=== PATIENT | female | born 1985 | race Caucasian/White ===

== ENCOUNTER 2023-05-02 16:31 | Inpatient (IN) | payer OTHER ==
[2023-05-02] MEDS ORDERED: SODIUM CHLORIDE 0.9% 1,000 ML IV STA ×2 (16:45→18:27)
[2023-05-02] MEDS ORDERED: ASPIRIN 81 MG PO STA (16:45)
[2023-05-02] MEDS ORDERED: ONDANSETRON 4 MG/2 ML VIAL IVP STA (16:46)
[2023-05-02] MEDS ORDERED: THIAMINE 100 MG/ML 2 ML VIAL IM STA (16:46)
[2023-05-02] MEDS ORDERED: LORazepam 2 MG/ML INJ IV PRN ×2 (16:46)
--- NOTE | 2023-05-02 17:08 | ED ---
General Adult HPI - General Chief complaint: Alcohol Stated complaint: ETOH Time Seen by Provider: 05/02/23 16:40 Source: patient, RN notes reviewed, old records reviewed Mode of arrival: EMS Limitations: no limitations - History of Present Illness Initial comments: Patient is a 37-year-old female presents emergency department for multiple complaints. Patient is having alcohol withdrawal symptoms as well as chest pains. States this is been ongoing throughout the day today. Last alcoholic beverage was over 12 hours ago. States she does not plan on drinking again. Does have a history of delirium tremens and alcohol withdrawals. Laboratory presented to [facility] where they some Librium to pharmacy that is closed and did not perform any additional testing. Presents again today for further evaluation. Is also complaining of suicidal ideations are nonspecific. Denies any plans or attempts. Denies any homicidal ideations, attempts, plans. Denies any hallucinations. Does have a history of delirium tremens. Endorses some mild nausea as well as one episode of nonbilious nonbloody emesis at home. Does have history of PE per patient. No shortness of breath. Primary complaint is chest pain and alcohol withdrawal symptoms at this time. Discussed the chest pain as a somewhat pressure-like sensation located substernally. Does not radiate. No other acute complaints at this time. No cardiac history for the patient. Presents for further evaluation. - Related Data Home Medications Medication Instructions Recorded Confirmed No Known Home Medications 05/02/23 05/02/23 Allergies Allergy/AdvReac Type Severity Reaction Status Date / Time cat dander Allergy Rash/Hives/Tongue Verified 05/02/23 19:05 Swelling Review of Systems ROS Statement: Those systems with pertinent positive or pertinent negative responses have been documented in the HPI. Review of Systems: CONST: Denies fever EYES: Denies blurry vision ENT: Denies nasal congestion C/V: Endorses chest pain RESP: Denies shortness of breath GI: Denies abdominal pain : Denies dysuria SKIN: Denies rash. MSK: Denies joint pain. NEURO: Denies headache ROS Other: All systems not noted in ROS Statement are negative. Past Medical History Past Medical History: Pulmonary Embolus (PE) History of Any Multi-Drug Resistant Organisms: None Reported Past Surgical History: Section Past Psychological History: Anxiety, Depression, PTSD Smoking Status: Never smoker Past Alcohol Use History: Abuse, Daily Past Drug Use History: Marijuana General Exam - General Exam Comments Initial Comments: General: Appears in no acute distress. Patient does have mild tongue fasciculations as well as extremity tremors. Patient does appear somewhat anxious. Is tachycardic as well. Appears to be a mild alcohol withdrawals at this time. HEAD: Normal with no signs of head trauma. EYES: PERRLA, EOMI, conjunctiva normal, no discharge. Pupils are 3 mm and equal bilaterally. ENT: Hearing grossly intact, normal oropharynx. RESPIRATORY: Clear breath sounds bilaterally. No wheezes, rales, or rhonchi. C/V: Tachycardic. S1 and S2 auscultated, peripheral pulses 2+ and intact throughout ABD: Abd is soft, nontender, nondistended EXT: Normal range of motion, no obvious deformity SKIN: Scars located over body. NEURO: Alert and oriented x 4. Tongue Fasciculations Present. Extremity Tremors Present. Limitations: no limitations Course Vital Signs 05/02/23 05/02/23 16:36 18:54 Temperature 98.1 F 98.8 F Pulse Rate 110 H 87 Respiratory 18 18 Rate Blood Pressure 161/103 128/88 O2 Sat by Pulse 98 100 Oximetry Medical Decision Making - Medical Decision Making Was pt. sent in by a medical professional or institution (, PA, ATHLETE MANAGER, urgent care, hospital, or half-way...) When possible be specific @ -No Did you speak to anyone other than the patient for history (EMS, parent, family, police, friend...)? What history was obtained from this source @ -No Did you review nursing and triage notes (agree or disagree)? Why? @ -I reviewed and agree with nursing and triage notes Were old charts reviewed (outside hosp., previous admission, EMS record, old EKG, old radiological studies, urgent care reports/EKG's, half-way records)? Report findings @ -Old charts reviewed. Differential Diagnosis (chest pain, altered mental status, abdominal pain women, abdominal pain men, vaginal bleeding, weakness, fever, dyspnea, syncope, headache, dizziness, GI bleed, back pain, seizure, CVA, palpatations, mental health, musculoskeletal)? @ -Differential Mental Health Depression, anxiety, bipolar, psychosis, schizophrenia, borderline personality, situational depression, adjustment disorder, behavioral disorder, brain tumor, malingering, substance abuse, encephalopathy, medication reaction, dementia, hyp othyroidism, degenerative neurologic disorder, lupus.... This is not meant to be all-inclusive list Differential Chest Pain: Stable Angina, Unstable Angina, STEMI, NSTEMI Aortic Dissection, Pneumothorax, Musculoskeletal, Esophageal Spasm GERD, Cholecystitis, Pancreatitis, Zoster, this is not meant to be an all-inclusive list. EKG interpreted by me (3pts min.). @ -As above X-rays interpreted by me (1pt min.). @ -Chest x-ray reveals no obvious acute cardiopulmonary process. CT interpreted by me (1pt min.). @ -None done U/S interpreted by me (1pt. min.). @ -None done What testing was considered but not performed or refused? (CT, X-rays, U/S, labs)? Why? @ -None What meds were considered but not given or refused? Why? @ -None Did you discuss the management of the patient with other professionals (professionals i.e. , PA, ATHLETE MANAGER, lab, RT, psych nurse, social services technician, cement crusher operator, teacher, technology officer, mental health case manager)? Give summary @ -yes, discussed with Dr. Pisano who accepted the patient. Was smoking cessation discussed for >3mins.? @ -No Was critical care preformed (if so, how long)? @ -No Were there social determinants of health that impacted care today? How? (Homelessness, low income, unemployed, alcoholism, drug addiction, transportation, low edu. Level, literacy, decrease access to med. care, prison, rehab)? @ -No Was there de-escalation of care discussed even if they declined (Discuss DNR or withdrawal of care, Hospice)? DNR status @ -No What co-morbidities impacted this encounter? (DM, HTN, Smoking, COPD, CAD, Cancer, CVA, ARF, Chemo, Hep., AIDS, mental health diagnosis, sleep apnea, morbid obesity)? @ -None Was patient admitted / discharged? Hospital course, mention meds given and route, prescriptions, significant lab abnormalities, going to OR and other pertinent info. @ -Based on the patient's presentation and physical exam, presents complaining of alcohol withdrawals, chest pain. We will obtain cardio pulmonary workup, as well as screening EKG, alcohol levels. Patient is continued suicidal ideations are nonspecific. She was placed in green scrubs and sitter ordered. Suicide precautions ordered. She'll be sent directly treated with IV Ativan, as well as IV Zofran, IV fluids. She was in agreement this plan. She is resting comfortably at this time. She is a mild alcohol withdrawals at this time. Discussed with the patient should likely be admitted and have psychiatry see her on an inpatient basis.[facility] protocol orderd. She is given 325mg of aspirin. EKG showed no signs of acute ischemia.Patient's labs are remarkable for a hypokalemia at 3.1 which was replenished, hypomagnesemia 1.4 which was replenished. Troponin is undetectable. BNP within acceptable limits. Remainder the workup unremarkable. This includes a d-dimer within normal limits. Reevaluation, patient is feeling improved. I would like to admit her for her alcohol withdrawals, electrolyte derangements, as well as chest pain. We will trend the troponin. Cardiology will be consulted. Due to her suicidal ideation psychiatry will also be consulted. She was in agreement with this plan. I spoke with the accepting physician, [facility] Dr. Pisano who accepted the patient. Undiagnosed new problem with uncertain prognosis? @ -No Drug Therapy requiring intensive monitoring for toxicity (Heparin, Nitro, Insulin, Cardizem)? @ -No Were any procedures done? @ -No Diagnosis/symptom? @ -Alcohol withdrawal, hypomagnesemia, hypokalemia, suicidal ideation, chest pain Acute, or Chronic, or Acute on Chronic? @ -Acute Uncomplicated (without systemic symptoms) or Complicated (systemic symptoms)? @ -Complicated Side effects of treatment? @ -none Exacerbation, Progression, or Severe Exacerbation] @ -no Poses a threat to life or bodily function? @ -Yes - Lab Data Result diagrams: 05/02/23 17:14 05/02/23 17:14 Lab Results 05/02/23 05/02/23 05/02/23 Range/Units 17:14 17:14 17:14 WBC 3.5 L (3.8-10.6) k/uL RBC 3.78 L (3.80-5.40) m/uL Hgb 12.6 (11.4-16.0) gm/dL Hct 35.6 (34.0-46.0) % MCV 94.2 (80.0-100.0) fL MCH 33.3 (25.0-35.0) pg MCHC 35.3 (31.0-37.0) g/dL RDW 12.8 (11.5-15.5) % Plt Count 112 L (150-450) k/uL MPV 7.9 Neutrophils % 65 % Lymphocytes % 25 % Monocytes % 7 % Eosinophils % 0 % Basophils % 0 % Neutrophils # 2.3 (1.3-7.7) k/uL Lymphocytes # 0.9 L (1.0-4.8) k/uL Monocytes # 0.3 (0-1.0) k/uL Eosinophils # 0.0 (0-0.7) k/uL Basophils # 0.0 (0-0.2) k/uL PT 12.4 (10.0-12.5) sec INR 1.2 H (<1.2) APTT 23.2 (22.0-30.0) sec D-Dimer 0.39 (<0.60) mg/L FEU Sodium 139 (137-145) mmol/L Potassium 3.1 L (3.5-5.1) mmol/L Chloride 108 H (98-107) mmol/L Carbon Dioxide 18 L (22-30) mmol/L Anion Gap 13 mmol/L BUN 9 (7-17) mg/dL Creatinine 0.61 (0.52-1.04) mg/dL Est GFR (CKD-EPI)AfAm >90 (>60 ml/min/1.73 sqM) Est GFR (CKD-EPI)NonAf >90 (>60 ml/min/1.73 sqM) Glucose 118 H (74-99) mg/dL Calcium 8.2 L (8.4-10.2) mg/dL Magnesium 1.4 L (1.6-2.3) mg/dL Total Bilirubin 1.4 H (0.2-1.3) mg/dL AST 72 H (14-36) U/L ALT 36 H (4-34) U/L Alkaline Phosphatase 104 (38-126) U/L Troponin I (0.000-0.034) ng/mL NT-Pro-B Natriuret Pep 156 pg/mL Total Protein 7.3 (6.3-8.2) g/dL Albumin 4.0 (3.5-5.0) g/dL Lipase 80 (23-300) U/L Urine Color Urine Appearance (Clear) Urine pH (5.0-8.0) Ur Specific [place] (1.001-1.035) Urine Protein (Negative) Urine Glucose (UA) (Negative) Urine Ketones (Negative) Urine Blood (Negative) Urine Nitrite (Negative) Urine Bilirubin (Negative) Urine Urobilinogen (<2.0) mg/dL Ur Leukocyte Esterase (Negative) Urine RBC (0-5) /hpf Urine WBC (0-5) /hpf Ur Squamous Epith Cells (0-4) /hpf Urine Bacteria (None) /hpf Urine Mucus (None) /hpf Serum Alcohol <10 mg/dL 05/02/23 05/02/23 Range/Units 17:14 17:14 WBC (3.8-10.6) k/uL RBC (3.80-5.40) m/uL Hgb (11.4-16.0) gm/dL Hct (34.0-46.0) % MCV (80.0-100.0) fL MCH (25.0-35.0) pg MCHC (31.0-37.0) g/dL RDW (11.5-15.5) % Plt Count (150-450) k/uL MPV Neutrophils % % Lymphocytes % % Monocytes % % Eosinophils % % Basophils % % Neutrophils # (1.3-7.7) k/uL Lymphocytes # (1.0-4.8) k/uL Monocytes # (0-1.0) k/uL Eosinophils # (0-0.7) k/uL Basophils # (0-0.2) k/uL PT (10.0-12.5) sec INR (<1.2) APTT (22.0-30.0) sec D-Dimer (<0.60) mg/L FEU Sodium (137-145) mmol/L Potassium (3.5-5.1) mmol/L Chloride (98-107) mmol/L Carbon Dioxide (22-30) mmol/L Anion Gap mmol/L BUN (7-17) mg/dL Creatinine (0.52-1.04) mg/dL Est GFR (CKD-EPI)AfAm (>60 ml/min/1.73 sqM) Est GFR (CKD-EPI)NonAf (>60 ml/min/1.73 sqM) Glucose (74-99) mg/dL Calcium (8.4-10.2) mg/dL Magnesium (1.6-2.3) mg/dL Total Bilirubin (0.2-1.3) mg/dL AST (14-36) U/L ALT (4-34) U/L Alkaline Phosphatase (38-126) U/L Troponin I <0.012 (0.000-0.034) ng/mL NT-Pro-B Natriuret Pep pg/mL Total Protein (6.3-8.2) g/dL Albumin (3.5-5.0) g/dL Lipase (23-300) U/L Urine Color Yellow Urine Appearance Cloudy H (Clear) Urine pH 6.0 (5.0-8.0) Ur Specific [place] 1.018 (1.001-1.035) Urine Protein Trace H (Negative) Urine Glucose (UA) Negative (Negative) Urine Ketones Negative (Negative) Urine Blood Negative (Negative) Urine Nitrite Negative (Negative) Urine Bilirubin Negative (Negative) Urine Urobilinogen <2.0 (<2.0) mg/dL Ur Leukocyte Esterase Small H (Negative) Urine RBC 3 (0-5) /hpf Urine WBC 15 H (0-5) /hpf Ur Squamous Epith Cells 12 H (0-4) /hpf Urine Bacteria Rare H (None) /hpf Urine Mucus Moderate H (None) /hpf Serum Alcohol mg/dL - EKG Data -: EKG Interpreted by Me EKG Comments: 12-lead Electrocardiogram Interpretation Note EKG was reviewed and interpreted by myself. 12-lead ECG performed at 1645 is interpreted by me as revealing normal sinus rhythm at a rate of 98 beats per mi nute. [place] is normal. [place] interval is 127 ms, QRS duration is 86 ms, QTc is 385 ms.. There were no ST or T wave abnormalities to suggest myocardial ischemia or injury. R wave progression across the precordium was satisfactory. By my interpretation this EKG is non-diagnostic for acute ischemia. Disposition Clinical Impression: Alcohol withdrawal, Hypomagnesemia, Hypokalemia, Suicidal ideations, Chest pain Disposition: ADMITTED IP TO THIS HOSP Condition: Stable Time of Disposition: 18:15
[2023-05-02 17:24] VITALS: RESP 18
--- NOTE | 2023-05-02 17:46 | XR ---
EXAMINATION TYPE: XR chest 2V DATE OF EXAM: 05/02/2023 COMPARISON: None HISTORY: 37-year-old female with chest pain TECHNIQUE: PA and lateral views FINDINGS: The cardiomediastinal silhouette, aorta, and pulmonary vasculature are within normal limits. Lungs an d pleural spaces are clear. IMPRESSION: No acute cardiopulmonary process.
[2023-05-02 17:47] LABS: Basophils % (A) 0 %; Eosinophils % (A) 0 %; HCT 35.6 % (34.0-46.0); HGB 12.6 gm/dL (11.4-16.0); Lymphocytes # (A) 0.9 k/uL (1.0-4.8); Lymphocytes % (A) 25 %; MCH 33.3 pg (25.0-35.0); MCHC 35.3 g/dL (31.0-37.0); MCV 94.2 fL (80.0-100.0); Mean Platelet Volume 7.9; Monocytes # (A) 0.3 k/uL (0-1.0); Monocytes % (A) 7 %; Neutrophils # (A) 2.3 k/uL (1.3-7.7); Neutrophils % (A) 65 %; Platelet Count 112 k/uL (150-450); RBC 3.78 m/uL (3.80-5.40); RDW 12.8 % (11.5-15.5); WBC 3.5 k/uL (3.8-10.6)
[2023-05-02 18:00] LABS: INR 1.2 (<1.2); Partial Thromboplastin Time 23.2 sec (22.0-30.0); Prothrombin Time 12.4 sec (10.0-12.5)
[2023-05-02 18:01] LABS: ALT 36 U/L (4-34); AST 72 U/L (14-36); African American GFR (CKD) >90 (>60 ml/min/1.73 sqM); Alcohol <10 mg/dL; Alkaline Phosphatase 104 U/L (38-126); Anion Gap 13 mmol/L; Blood Urea Nitrogen 9 mg/dL (7-17); Calcium 8.2 mg/dL (8.4-10.2); Carbon Dioxide 18 mmol/L (22-30); Chloride 108 mmol/L (98-107); Glucose 118 mg/dL (74-99); Lipase 80 U/L (23-300); Magnesium 1.4 mg/dL (1.6-2.3); Non-African American GFR(CKD) >90 (>60 ml/min/1.73 sqM); Potassium 3.1 mmol/L (3.5-5.1); Sodium 139 mmol/L (137-145); Total Bilirubin 1.4 mg/dL (0.2-1.3); Total Protein 7.3 g/dL (6.3-8.2)
[2023-05-02 18:08] LABS: NT-Pro-B-Type Natriuretic Pept 156 pg/mL
[2023-05-02] MEDS ORDERED: POTASSIUM CHLORIDE ER 20 MEQ TAB.ER PO STA (18:26)
[2023-05-02] MEDS ORDERED: MAGNESIUM SULFATE-D5W PMX 1 GM in DEXTROSE/WATER 1 100ML.BAG IVPB ONE (18:26)
[2023-05-02] MEDS ORDERED: MAG HYDROX/AL HYDROX/SIMETH 30 ML, HYOSCYAMINE ELIXIR 10 ML, LIDOCAINE 2% GLYDO JELLY 1... PO STA ×3 (18:27)
[2023-05-02] MEDS ORDERED: NALOXONE 0.4 MG/ML 1 ML VIAL IV PRN (18:29)
[2023-05-02] MEDS: LORazepam 2 MG/ML INJ IV PRN (18:42)
[2023-05-02 20:10] LABS: Appearance,Urine Cloudy (Clear); Bacteria,Urine Rare /hpf; Bilirubin,Urine Negative (Negative); Blood,Urine Negative (Negative); Color,Urine Yellow; Glucose,Urine (UA) Negative (Negative); Ketones,Urine Negative (Negative); Leukocyte Esterase,Urine Small (Negative); Mucus,Urine Moderate /hpf; Nitrite,Urine Negative (Negative); Protein,Urine Trace (Negative); RBC,Urine 3 /hpf (0-5); Specific Gravity,Urine 1.018 (1.001-1.035); Squamous Epithelial Cell,Urine 12 /hpf (0-4); Urobilinogen,Urine <2.0 mg/dL (<2.0); WBC,Urine 15 /hpf (0-5)
[2023-05-03] MEDS ORDERED: IBUPROFEN 600 MG TAB PO STA ×2 (00:14→00:15)
[2023-05-03] MEDS: HEPARIN SODIUM,PORCINE 5,000 UNIT/ML 1 ML VIAL SQ SCH ×4 (00:21→23:28)
[2023-05-03] MEDS: LORazepam 2 MG/ML INJ IV PRN ×4 (00:29→20:36)
[2023-05-03] MEDS ORDERED: TEMAZEPAM 15 MG CAP PO ONE (03:30)
--- NOTE | 2023-05-03 04:20 | P.HPIM ---
History of Present Illness H&P Date: 05/02/23 Chief Complaint: Alcohol withdrawal 37-year-old female with alcohol abuse Patient coming in seeking help with alcohol detox she's been sober for over a month however she had a relapse started drinking again coming in today asking for help with detox her last drink was about 12 hours prior to presentation she reports history of DVTs in the past. Currently patient feeling fine reporting no chest pain trouble breathing she feels little anxious denies any hallucinations Patient does report depressed mood and suicidal ideation however she doesn't have a plan she is asking for help and speak with our psychiatrist Patient also reports that she is homeless currently living with a friend. And would like to discuss with sr. social media & mobile manager see there is any options for [facility] rehab Patient denies tobacco smoking or illicit drugs she does not take any medications at home Patient denies any fevers chills coughing chest pain trouble breathing nausea vomiting abdominal pain changes in bowel or urinary habits denies any GI bleeding review of systems Pertinent positives as noted in HPI. All other systems were reviewed and are negative on exam Constitutional: No acute distress, conversant, pleasant Eyes: Anicteric sclerae, moist conjunctiva, Pupils equal round reactive to light ENMT: NC/AT Oropharynx clear, no erythema, or exudates Neck: Supple, no masses, or JVD No carotid bruits No thyromegaly Lungs: Clear to auscultation Clear to percussion Normal respiratory effort, no accessory muscle use Cardiovascular: Heart regular in rate and rhythm, No murmurs, gallops, or rubs No peripheral edema Abdominal: Soft Nontender, no guarding, rebound or rigidity Abdomen moving with respiration Normoactive bowel sounds No hepatomegaly, No splenomegaly No palpable mass No abdominal wall hernia noted Skin: Multiple raised lesions over bilateral legs with history of psoriasis, lesions look scaly around macular erythematous Extremities: No digital cyanosis No clubbing Pedal pulses intact and symmetrical Radial pulses intact and symmetrical No calf tenderness Psychiatric: Alert and oriented to person, place and time Neuro Muscles Strength 5/5 in all 4 extremities Sensation to light touch grossly present throughout Cranial nerves II-XII grossly intact Lymphatics: no palpable cervical or supraclavicular lymph nodes Past Medical History Past Medical History: Pulmonary Embolus (PE) History of Any Multi-Drug Resistant Organisms: None Reported Past Surgical History: Section Past Psychological History: Anxiety, Depression, PTSD Smoking Status: Never smoker Past Alcohol Use History: Abuse, Daily Past Drug Use History: Marijuana Medications and Allergies Home Medications Medication Instructions Recorded Confirmed Type No Known Home Medications 05/02/23 05/02/23 History Allergies Allergy/AdvReac Type Severity Reaction Status Date / Time cat dander Allergy Rash/Hives/Tongue Verified 05/02/23 19:05 Swelling Physical Exam Vitals: Vital Signs Temp Pulse Resp BP Pulse Ox 05/02/23 20:46 86 18 151/95 95 05/02/23 18:54 98.8 F 87 18 128/88 100 05/02/23 16:36 98.1 F 110 H 18 161/103 98 Intake and Output 05/02/23 05/02/23 05/03/23 14:59 22:59 06:59 Other: Weight 90.718 kg Results CBC & Chem 7: 05/02/23 17:14 05/02/23 17:14 Labs: Abnormal Lab Results - Last 24 Hours (Table) 05/02/23 05/02/23 05/02/23 Range/Units 17:14 17:14 17:14 WBC 3.5 L (3.8-10.6) k/uL RBC 3.78 L (3.80-5.40) m/uL Plt Count 112 L (150-450) k/uL Lymphocytes # 0.9 L (1.0-4.8) k/uL INR 1.2 H (<1.2) Potassium 3.1 L (3.5-5.1) mmol/L Chloride 108 H (98-107) mmol/L Carbon Dioxide 18 L (22-30) mmol/L Glucose 118 H (74-99) mg/dL Calcium 8.2 L (8.4-10.2) mg/dL Magnesium 1.4 L (1.6-2.3) mg/dL Total Bilirubin 1.4 H (0.2-1.3) mg/dL AST 72 H (14-36) U/L ALT 36 H (4-34) U/L Urine Appearance (Clear) Urine Protein (Negative) Ur Leukocyte Esterase (Negative) Urine WBC (0-5) /hpf Ur Squamous Epith Cells (0-4) /hpf Urine Bacteria (None) /hpf Urine Mucus (None) /hpf 05/02/23 Range/Units 17:14 WBC (3.8-10.6) k/uL RBC (3.80-5.40) m/uL Plt Count (150-450) k/uL Lymphocytes # (1.0-4.8) k/uL INR (<1.2) Potassium (3.5-5.1) mmol/L Chloride (98-107) mmol/L Carbon Dioxide (22-30) mmol/L Glucose (74-99) mg/dL Calcium (8.4-10.2) mg/dL Magnesium (1.6-2.3) mg/dL Total Bilirubin (0.2-1.3) mg/dL AST (14-36) U/L ALT (4-34) U/L Urine Appearance Cloudy H (Clear) Urine Protein Trace H (Negative) Ur Leukocyte Esterase Small H (Negative) Urine WBC 15 H (0-5) /hpf Ur Squamous Epith Cells 12 H (0-4) /hpf Urine Bacteria Rare H (None) /hpf Urine Mucus Moderate H (None) /hpf Assessment and Plan Assessment: 37-year-old female with alcohol dependence coming in requesting help with alcohol withdrawal as she strength to detox she is also reporting depressed mood and suicidal ideation and discuss case with the ED doctor accepted the admission for alcohol withdrawal with suicidal ideation for psych evaluation with anticipated length of stay more than 2 midnights Alcohol dependence with alcohol withdrawal Alcohol withdrawal precautions Benzos per CIWA Thiamine daily Fall precautions IV fluid hydration normal saline 75 mL per hour Electrolytes Abnormalities Hypokalemia replace and follow-up levels Potassium 3.1 Hypomagnesemia replace and follow up level Magnesium 1.4 Transaminitis most likely secondary to alcohol abuse AST 72 ALT 36 Continue to follow up Acute respiratory viral panel negative for influenza Covid and flu Hemoglobin 12.6 white count 3.5 unremarkable D-dimer negative Renal function unremarkable sodium 139 BUN 9 creatinine 0.6 Depressed mood Suicidal ideation Suicide precautions Psych evaluation Full code DVT prophylaxis heparin subcu 3 times a day
[2023-05-03 06:35] VITALS: TEMP 97.6
[2023-05-03] MEDS: THIAMINE 100 MG TAB PO SCH (09:05)
[2023-05-03] MEDS: PANTOPRAZOLE 40 MG/10 ML VIAL IV SCH (09:06)
[2023-05-03 10:38] LABS: Basophils % (A) 1 %; Eosinophils % (A) 1 %; HCT 36.1 % (34.0-46.0); HGB 12.3 gm/dL (11.4-16.0); Lymphocytes # (A) 0.9 k/uL (1.0-4.8); Lymphocytes % (A) 42 %; MCH 32.9 pg (25.0-35.0); MCHC 34.1 g/dL (31.0-37.0); MCV 96.4 fL (80.0-100.0); Mean Platelet Volume 7.6; Monocytes # (A) 0.1 k/uL (0-1.0); Monocytes % (A) 6 %; Neutrophils % (A) 47 %; RBC 3.75 m/uL (3.80-5.40); RDW 12.9 % (11.5-15.5)
[2023-05-03 10:51] LABS: African American GFR (CKD) >90 (>60 ml/min/1.73 sqM); Anion Gap 11 mmol/L; Blood Urea Nitrogen 4 mg/dL (7-17); Carbon Dioxide 20 mmol/L (22-30); Chloride 108 mmol/L (98-107); Glucose 91 mg/dL (74-99); Magnesium 1.8 mg/dL (1.6-2.3); Non-African American GFR(CKD) >90 (>60 ml/min/1.73 sqM); Potassium 3.5 mmol/L (3.5-5.1); Sodium 139 mmol/L (137-145)
[2023-05-03 11:13] LABS: Platelet Count 94 k/uL (150-450); RBC Morphology Normal
--- NOTE | 2023-05-03 11:50 | P.PN ---
Subjective Progress Note Date: 05/03/23 37 year old F with PMH of EtOH abuse presents to the ED for alcohol withdrawal and suicidal thoughts. In the ED, she underwent extensive evaluation. BP 161/103 HR 110, T 98.1F, RR 18, 98% on RA. CBC WBC 3.5, RBC 3.78, Plt 112. CMP Cl 108, bicarb 20, BUN 4, Ca 8. Troponins < 0.012 x 3. UA small LE. COVID, Flu, RSV negative. EtOH serum < 10. 05/03 Patient was seen and examined. She reports feeling hopeless. CBC WBC 2, RBC 3.75, Plt 94. CMP Cl 108, bicarb 20, BUN 4, Ca 8. Vital signs reviewed General: no distress, appears at stated age Derm: warm, dry Eyes: EOMI, no lid lag, anicteric sclera ENT: Nose and ears atraumatic Cardiovascular: Good distal perfusion in all 4 extremities Lungs: Breathing comfortably, no accessory muscle use Ext: no gross muscle atrophy, no contractures Neuro: no focal neuro deficits Psych: Alert, oriented, appropriate affect Based on my assessment of this patient, this patient meets a moderate complexity level of care. Patient has an acute complaint of alcohol withdrawal and suicidal ideations which poses a threat to life or bodily function. Alcohol dependence with alcohol withdrawal: CIWA protocol with ativan PRN per scale. Leukopenia and thrombocytopenia: Likely related to EtOH abuse. Transaminitis: Obstructive. Likely related to EtOH abuse. No abdominal complaints. Obtain Liver and GB US. Suicidal ideation: Sitter. Psyc consulted. Resolved: HypoK CODE STATUS: FULL CODE DVT Prophylaxis: Heparin SQ GI Prophylaxis: Protonix IV Designated medical POA if patient is not able to make medical decisions for themselves: I have reviewed the following accounting policy consultant notes: I have reviewed the results of the following tests: CBC, CMP. I have ordered the following tests: CBC, CMP, Liver GB US I have discussed the care of this patient with the following independent historian: I have independently interpreted the following test below: I have discussed the management of this patient with the following physician: Objective - Vital Signs Vital signs: Vital Signs Temp 97.6 F 05/03/23 06:32 Pulse 102 H 05/03/23 09:15 Resp 18 05/03/23 09:15 BP 144/107 05/03/23 09:15 Pulse Ox 98 05/03/23 09:15 FiO2 Intake & Output 05/02/23 05/03/23 05/03/23 18:59 06:59 18:59 Weight 90.718 kg - Labs CBC & Chem 7: 05/03/23 10:12 05/03/23 10:12 Labs: Abnormal Lab Results - Last 24 Hours (Table) 05/02/23 05/02/23 05/02/23 Range/Units 17:14 17:14 17:14 WBC 3.5 L (3.8-10.6) k/uL RBC 3.78 L (3.80-5.40) m/uL Plt Count 112 L (150-450) k/uL Neutrophils # (1.3-7.7) k/uL Lymphocytes # 0.9 L (1.0-4.8) k/uL INR 1.2 H (<1.2) Potassium 3.1 L (3.5-5.1) mmol/L Chloride 108 H (98-107) mmol/L Carbon Dioxide 18 L (22-30) mmol/L BUN (7-17) mg/dL Glucose 118 H (74-99) mg/dL Calcium 8.2 L (8.4-10.2) mg/dL Magnesium 1.4 L (1.6-2.3) mg/dL Total Bilirubin 1.4 H (0.2-1.3) mg/dL AST 72 H (14-36) U/L ALT 36 H (4-34) U/L Urine Appearance (Clear) Urine Protein (Negative) Ur Leukocyte Esterase (Negative) Urine WBC (0-5) /hpf Ur Squamous Epith Cells (0-4) /hpf Urine Bacteria (None) /hpf Urine Mucus (None) /hpf 05/02/23 05/03/23 05/03/23 Range/Units 17:14 10:12 10:12 WBC 2.0 L (3.8-10.6) k/uL RBC 3.75 L (3.80-5.40) m/uL Plt Count 94 L (150-450) k/uL Neutrophils # 1.0 L (1.3-7.7) k/uL Lymphocytes # 0.9 L (1.0-4.8) k/uL INR (<1.2) Potassium (3.5-5.1) mmol/L Chloride 108 H (98-107) mmol/L Carbon Dioxide 20 L (22-30) mmol/L BUN 4 L (7-17) mg/dL Glucose (74-99) mg/dL Calcium 8.0 L (8.4-10.2) mg/dL Magnesium (1.6-2.3) mg/dL Total Bilirubin (0.2-1.3) mg/dL AST (14-36) U/L ALT (4-34) U/L Urine Appearance Cloudy H (Clear) Urine Protein Trace H (Negative) Ur Leukocyte Esterase Small H (Negative) Urine WBC 15 H (0-5) /hpf Ur Squamous Epith Cells 12 H (0-4) /hpf Urine Bacteria Rare H (None) /hpf Urine Mucus Moderate H (None) /hpf
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
--- NOTE | 2023-05-03 12:45 | P.CRDCN ---
History of Present Illness History of present illness: This is Dr. Mccormack dictating an H/P on this patient The patient was interviewed and examined IMPRESSION / ASSESSMENT: Alcohol abuse Atypical chest discomfort normal EKG and normal cardiac enzymes No arrhythmias detected so far Mildly elevated blood pressure in the setting of alcohol use Suppressed white count likely related to alcohol use PLAN: Watch blood pressure If remains elevated and heart rates are also elevated I will treat her with beta blockers 2-D echo and Doppler study to assess cardiac structure and function HPI 37-year-old female who presented with recurrent chest discomfort. She has been drinking heavily recently She also complained of palpitations and got scared No loss of consciousness no shortness of breath Low white count consistent with bone marrow suppression likely alcohol related Normal d-dimer Low potassium of 3.1 Normal renal function Normal cardiac enzymes Normal NT proBNP Twelve-lead EKG shows sinus rhythm normal RI narrow QRS normal ST segments ROS: No fever chills or rigors, no cough, phlegm or expectoration, no nausea, vomiting or diarrhea, no hematuria, dysuria, no musculoskeletal complaints, no strokes or seizures, no skin lesions. EXAMINATION: Pulse rate 93 beats a minute, blood pressure mildly elevated at 143/95 mmHg Normal heart sounds Normal breath sounds No JVD REVIEW OF LABS, ECG & MEDICAL DATA Labs are reviewed normal cardiac enzymes normal NT proBNP Low white count Past Medical History Past Medical History: Pulmonary Embolus (PE) History of Any Multi-Drug Resistant Organisms: None Reported Past Surgical History: Section Past Psychological History: Anxiety, Depression, PTSD Smoking Status: Never smoker Past Alcohol Use History: Abuse, Daily Past Drug Use History: Marijuana Medications and Allergies Home Medications Medication Instructions Recorded Confirmed Type No Known Home Medications 05/02/23 05/02/23 History Allergies Allergy/AdvReac Type Severity Reaction Status Date / Time cat dander Allergy Rash/Hives/Tongue Verified 05/02/23 19:05 Swelling Physical Exam Vitals: Vital Signs Temp Pulse Resp BP Pulse Ox 05/03/23 09:15 102 H 18 144/107 98 05/03/23 06:32 97.6 F 93 18 143/95 96 05/02/23 20:46 86 18 151/95 95 05/02/23 18:54 98.8 F 87 18 128/88 100 05/02/23 16:36 98.1 F 110 H 18 161/103 98 Intake and Output 12/05/03/23 05/03/23 22:59 06:59 14:59 Other: Weight 90.718 kg Results 05/03/23 10:12 05/03/23 10:12 Cardiac Enzymes 05/02/23 05/02/23 05/02/23 Range/Units 17:14 17:14 22:07 AST 72 H (14-36) U/L Troponin I <0.012 <0.012 (0.000-0.034) ng/mL 05/03/23 Range/Units 01:23 AST (14-36) U/L Troponin I <0.012 (0.000-0.034) ng/mL Coagulation 05/02/23 Range/Units 17:14 PT 12.4 (10.0-12.5) sec APTT 23.2 (22.0-30.0) sec CBC 05/02/23 05/03/23 Range/Units 17:14 10:12 WBC 3.5 L 2.0 L (3.8-10.6) k/uL RBC 3.78 L 3.75 L (3.80-5.40) m/uL Hgb 12.6 12.3 (11.4-16.0) gm/dL Hct 35.6 36.1 (34.0-46.0) % Plt Count 112 L 94 L (150-450) k/uL Comprehensive Metabolic Panel 05/02/23 05/03/23 Range/Units 17:14 10:12 Sodium 139 139 (137-145) mmol/L Potassium 3.1 L 3.5 (3.5-5.1) mmol/L Chloride 108 H 108 H (98-107) mmol/L Carbon Dioxide 18 L 20 L (22-30) mmol/L BUN 9 4 L (7-17) mg/dL Creatinine 0.61 0.60 (0.52-1.04) mg/dL Glucose 118 H 91 (74-99) mg/dL Calcium 8.2 L 8.0 L (8.4-10.2) mg/dL AST 72 H (14-36) U/L ALT 36 H (4-34) U/L Alkaline Phosphatase 104 (38-126) U/L Total Protein 7.3 (6.3-8.2) g/dL Albumin 4.0 (3.5-5.0) g/dL Current Medications Generic Name Dose Route Start Last Admin Trade Name Freq PRN Reason Stop Dose Admin Heparin Sodium (Porcine) 5,000 unit 05/03/23 00:00 05/03/23 09:07 Heparin Sodium,Porcine 5,000 Unit/Ml 1 Ml Vial SQ 5,000 unit Q8HR CYDNEY Administration Lorazepam 1 mg 05/02/23 16:46 05/03/23 03:56 Lorazepam 2 Mg/Ml Inj IV 1 mg Q1HR PRN Administration CIWA 10 to 15 Lorazepam 1 mg 05/02/23 16:46 Lorazepam 2 Mg/Ml Inj IV Q2HR PRN CIWA 8 or 9 Lorazepam 2 mg 05/02/23 16:46 05/03/23 12:32 Lorazepam 2 Mg/Ml Inj IV 05/04/23 16:46 2 mg Q10M PRN Administration CIWA 16 or higher Naloxone HCl 0.2 mg 05/02/23 18:29 Naloxone 0.4 Mg/Ml 1 Ml Vial IV Q2M PRN Opioid Reversal Pantoprazole Sodium 40 mg 05/03/23 09:00 05/03/23 09:06 Pantoprazole 40 Mg/10 Ml Vial IV 40 mg DAILY CYDNEY Administration Thiamine HCl 100 mg 05/03/23 09:00 05/03/23 09:05 Thiamine 100 Mg Tab PO 100 mg DAILY CYDNEY Administration Intake and Output 05/02/23 05/03/23 05/03/23 22:59 06:59 14:59 Other: Weight 90.718 kg 05/03/23 10:12 05/03/23 10:12
[2023-05-03] MEDS ORDERED: TEMAZEPAM 30 MG CAP PO PRN (20:30)
[2023-05-03] MEDS ORDERED: TEMAZEPAM 7.5 MG CAP PO PRN (22:47)
[2023-05-04] MEDS: LORazepam 2 MG/ML INJ IV PRN ×3 (03:52→04:40)
[2023-05-04] MEDS ORDERED: TEMAZEPAM 15 MG CAP PO PRN (06:39)
--- NOTE | 2023-05-04 07:43 | US ---
EXAMINATION TYPE: US liver DATE OF EXAM: 05/04/2023 COMPARISON: NONE CLINICAL INDICATION: Female, 37 years old with history of add gall bladder; ETOH abuse TECHNIQUE: Multiple sonographic images of the right upper quadrant are obtained. FINDINGS: EXAM MEASUREMENTS: Liver Length: 19.2 cm Gallbladder Wall: 0.2 cm CBD: 0.3 cm Right Kidney: 10.9 x 4.5 x 4.6 cm PARKING CASHIER NOTES: Pancreas: wnl Liver: Enlarged, heterogeneous with increased echotexture. No suspicious masses. Gallbladder: wnl Evidence for sonographic Garcia's sign: No CBD: wnl Right Kidney: wnl IMPRESSION: 1. No evidence for acute process. 2. Hepatic steatosis.
[2023-05-04 08:28] LABS: HCT 36.1 % (34.0-46.0); HGB 12.7 gm/dL (11.4-16.0); MCH 33.4 pg (25.0-35.0); MCHC 35.2 g/dL (31.0-37.0); MCV 94.8 fL (80.0-100.0); Mean Platelet Volume 7.5; Platelet Count 100 k/uL (150-450); RBC 3.81 m/uL (3.80-5.40); RDW 13.2 % (11.5-15.5); WBC 3.5 k/uL (3.8-10.6)
[2023-05-04] MEDS: HEPARIN SODIUM,PORCINE 5,000 UNIT/ML 1 ML VIAL SQ SCH ×2 (09:41→16:25)
[2023-05-04] MEDS: PANTOPRAZOLE 40 MG/10 ML VIAL IV SCH (09:41)
[2023-05-04] MEDS: THIAMINE 100 MG TAB PO SCH (09:42)
[2023-05-04 10:49] LABS: ALT 44 U/L (4-34); AST 119 U/L (14-36); African American GFR (CKD) >90 (>60 ml/min/1.73 sqM); Albumin 3.8 g/dL (3.5-5.0); Albumin/Globulin Ratio 1.2; Alkaline Phosphatase 97 U/L (38-126); Anion Gap 11 mmol/L; Blood Urea Nitrogen 6 mg/dL (7-17); Calcium 8.6 mg/dL (8.4-10.2); Carbon Dioxide 21 mmol/L (22-30); Chloride 106 mmol/L (98-107); Globulin 3.1 g/dL; Glucose 95 mg/dL (74-99); Non-African American GFR(CKD) >90 (>60 ml/min/1.73 sqM); Potassium 3.3 mmol/L (3.5-5.1); Sodium 138 mmol/L (137-145); Total Protein 6.9 g/dL (6.3-8.2)
[2023-05-04] MEDS ORDERED: HYDROcodone/APAP 5-325MG 1 EACH TAB PO PRN (12:53)
[2023-05-04] MEDS ORDERED: POTASSIUM CHLORIDE ER 20 MEQ TAB.ER PO STA (12:53)
--- NOTE | 2023-05-04 12:56 | P.PN ---
Subjective Progress Note Date: 05/04/23 37 year old F with PMH of EtOH abuse presents to the ED for alcohol withdrawal and suicidal thoughts. In the ED, she underwent extensive evaluation. BP 161/103 HR 110, T 98.1F, RR 18, 98% on RA. CBC WBC 3.5, RBC 3.78, Plt 112. CMP Cl 108, bicarb 20, BUN 4, Ca 8. Troponins < 0.012 x 3. UA small LE. COVID, Flu, RSV negative. EtOH serum < 10. 05/03 Patient was seen and examined. She reports feeling hopeless. CBC WBC 2, RBC 3.75, Plt 94. CMP Cl 108, bicarb 20, BUN 4, Ca 8. 05/04 Patient was seen and examined. She reports myalgias. Cardiology recommends Echocardiogram. CBC WBC 3.5, Plt 100. CMP K 3.3, bicarb 21, BUN 6, AST 119, ALT 44. Vital signs reviewed General: no distress, appears at stated age Derm: warm, dry Eyes: EOMI, no lid lag, anicteric sclera ENT: Nose and ears atraumatic Cardiovascular: Good distal perfusion in all 4 extremities Lungs: Breathing comfortably, no accessory muscle use Ext: no gross muscle atrophy, no contractures Neuro: no focal neuro deficits Psych: Alert, oriented, appropriate affect Based on my assessment of this patient, this patient meets a moderate complexity level of care. Patient has an acute complaint of alcohol withdrawal and suicidal ideations wh ich poses a threat to life or bodily function. Alcohol dependence with alcohol withdrawal: CIWA protocol with ativan PRN per scale. Leukopenia and thrombocytopenia: Likely related to EtOH abuse. Transaminitis: Obstructive. Likely related to EtOH abuse. No abdominal complaints. Obtain Liver and GB US. Suicidal ideation: Sitter. Psyc consulted. Resolved: HypoK Medically stable for discharge to mental health unit. CODE STATUS: FULL CODE DVT Prophylaxis: Heparin SQ GI Prophylaxis: Protonix IV Designated medical POA if patient is not able to make medical decisions for themselves: I have reviewed the following executive talent acquisition consultant notes: I have reviewed the results of the following tests: CBC, CMP. I have ordered the following tests: Pending: Liver GB US Echocardiogram. I have discussed the care of this patient with the following independent historian: I have independently interpreted the following test below: I have discussed the management of this patient with the following physician: Objective - Vital Signs Vital signs: Vital Signs Temp 97.6 F 05/03/23 06:32 Pulse 89 05/04/23 04:30 Resp 18 05/04/23 04:30 BP 134/108 05/04/23 04:30 Pulse Ox 98 05/04/23 04:30 FiO2 - Labs CBC & Chem 7: 05/04/23 08:06 05/04/23 08:06 Labs: Abnormal Lab Results - Last 24 Hours (Table) 05/04/23 05/04/23 Range/Units 08:06 08:06 WBC 3.5 L (3.8-10.6) k/uL Plt Count 100 L (150-450) k/uL Potassium 3.3 L (3.5-5.1) mmol/L Carbon Dioxide 21 L (22-30) mmol/L BUN 6 L (7-17) mg/dL AST 119 H (14-36) U/L ALT 44 H (4-34) U/L
[2023-05-04] MEDS ORDERED: METOPROLOL TARTRATE 25 MG TAB PO SCH (13:45)
[2023-05-04 15:01] VITALS: BP 144/104
--- NOTE | 2023-05-04 16:21 | P.PN ---
Subjective HPI 37-year-old female who presented with recurrent chest discomfort. She has been drinking heavily recently She also complained of palpitations and got scared No loss of consciousness no shortness of breath Low white count consistent with bone marrow suppression likely alcohol related Normal d-dimer Low potassium of 3.1 Normal renal function Normal cardiac enzymes Normal NT proBNP Twelve-lead EKG shows sinus rhythm normal IL narrow QRS normal ST segments 05/04 Patient seen and examined. BP mainly 140-150/90-100's. No chest pain. No pa lpitations. Echo pending. EXAMINATION: Vitals reviewed Obese Normal heart sounds Normal breath sounds No JVD 05/04 IMPRESSION / ASSESSMENT: Alcohol abuse Atypical chest discomfort normal EKG and normal cardiac enzymes History of DVT, Dimer normal Hypertension Suppressed white count likely related to alcohol use PLAN: Blood pressure remains elevated and we will start Metoprolol which she believes she was on before and tolerated well. Await 2D echo. Alcohol cessation. Dimer normal with history of PE in the past. If echo unrevealing, no further inpatient workup from a cardiology perspective. Objective - Vital Signs Vital signs: Vital Signs Temp 97.6 F 05/03/23 06:32 Pulse 91 05/04/23 14:42 Resp 18 05/04/23 14:42 BP 144/104 05/04/23 14:42 Pulse Ox 98 05/04/23 14:42 FiO2 - Labs CBC & Chem 7: 05/04/23 08:06 05/04/23 08:06 Labs: Abnormal Lab Results - Last 24 Hours (Table) 05/04/23 05/04/23 Range/Units 08:06 08:06 WBC 3.5 L (3.8-10.6) k/uL Plt Count 100 L (150-450) k/uL Potassium 3.3 L (3.5-5.1) mmol/L Carbon Dioxide 21 L (22-30) mmol/L BUN 6 L (7-17) mg/dL AST 119 H (14-36) U/L ALT 44 H (4-34) U/L
[2023-05-04 16:56] VITALS: PULSE 89
--- NOTE | 2023-05-04 18:42 | P.DS ---
Providers Date of admission: 05/02/23 18:30 Expected date of discharge: 05/04/23 Attending physician: Lorena Pisano MD Consults: 05/02/23 18:29 Consult Physician Routine Consulting Provider: [facility] Consult Reason/Comments: chest pain Do you want consulting provider notified?: Yes Consult Physician Routine Consulting Provider: Richard Arce Consult Reason/Comments: suicidal ideations, ETOH abuse Do you want consulting provider notified?: Already Contacted Primary care physician: Stated None Hospital Course: 37 year old F with PMH of EtOH abuse presents to the ED for alcohol withdrawal and suicidal thoughts. In the ED, she underwent extensive evaluation. BP 161/103 HR 110, T 98.1F, RR 18, 98% on RA. CBC WBC 3.5, RBC 3.78, Plt 112. CMP Cl 108, bicarb 20, BUN 4, Ca 8. Troponins < 0.012 x 3. UA small LE. COVID, Flu, RSV negative. EtOH serum < 10. 05/03 Patient was seen and examined. She reports feeling hopeless. CBC WBC 2, RBC 3.75, Plt 94. CMP Cl 108, bicarb 20, BUN 4, Ca 8. 05/04 Patient was seen and examined. She reports myalgias. Cardiology recommends Echocardiogram. CBC WBC 3.5, Plt 100. CMP K 3.3, bicarb 21, BUN 6, AST 119, ALT 44. Liver US shows hepatic steatosis. Echo pending. Medically stable. Plans for transfer to [facility] today. Pertinent studies include Liver US. General: no distress, appears at stated age Derm: warm, dry Eyes: EOMI, no lid lag, anicteric sclera ENT: Nose and ears atraumatic Cardiovascular: Good distal perfusion in all 4 extremities Lungs: Breathing comfortably, no accessory muscle use Ext: no gross muscle atrophy, no contractures Neuro: no focal neuro deficits Psych: Alert, oriented, appropriate affect Discharge Diagnosis: Alcohol dependence with alcohol withdrawal: CIWA protocol with ativan PRN per scale. Leukopenia and thrombocytopenia: Likely related to EtOH abuse. Transaminitis: Obstructive. Likely related to EtOH abuse. No abdominal complaints. Liver and GB US as above. Suicidal ideation: Sitter. Psyc consulted. Resolved: HypoK This complex discharge took 35 minutes to complete. Patient Condition at Discharge: Stable Plan - Discharge Summary New Discharge Prescriptions: No Action No Known Home Medications Discharge Medication List No Known Home Medications 05/02/23 [History] Follow up Appointment(s)/Referral(s): None,Stated [Primary Care Provider] - 1-2 days Discharge Disposition: TRANSFER TO PSYCH HOSP/UNIT
--- NOTE | 2023-05-05 07:57 | CA ---
Transthoracic Echo Report Name: Ena Santana Age: 37 Gender: F : 1985 Exam Date: 05/04/2023 14:50 Exam Location: [place] Echo Ht (in): 68 Wt (lb): 200 Ordering Physician: Jennifer Seay MD Attending/Referring Phys: Disaster Recovery Analyst Monica Rogers RDCS Procedure CPT: Indications: CP Cardiac Hx: Technical Quality: Good Contrast 1: Total Dose (mL): Contrast 2: Total Dose (mL): MEASUREMENTS (Male / Female) Normal Values 2D ECHO LV Diastolic Diameter PLAX 4.1 cm 4.2 - 5.9 / 3.9 - 5.3 cm LV Systolic Diameter PLAX 2.8 cm IVS Diastolic Thickness 1.0 cm 0.6 - 1.0 / 0.6 - 0.9 cm LVPW Diastolic Thickness 1.1 cm 0.6 - 1.0 / 0.6 - 0.9 cm LV Relative Wall Thickness 0.5 RV Internal Dim ED PLAX 2.9 cm LA Systolic Diameter LX 3.5 cm 3.0 - 4.0 / 2.7 - 3.8 cm LV Diastolic Volume MOD 4C 101.5 cm??? LV Systolic Volume MOD 4C 48.3 cm??? LV Ejection Fraction MOD 4C 52.4 % LV Cardiac Index MOD 4C 2217.4 cm???/min???m??? LV Diastolic Length 4C 8.2 cm LV Systolic Length 4C 6.8 cm LV Diastolic Volume MOD 2C 61.8 cm??? LV Systolic Volume MOD 2C 23.5 cm??? LV Ejection Fraction MOD 2C 61.9 % LV Cardiac Index MOD 2C 1593.1 cm???/min???m??? LV Diastolic Length 2C 7.7 cm LV Systolic Length 2C 6.7 cm LA Volume 46.2 cm??? 18 - 58 / 22 - 52 cm??? LA Volume Index 21.9 cm???/m??? 16 - 28 cm???/m??? M-MODE Aortic Root Diameter MM 2.9 cm MV E Point Septal Separation 0.3 cm AV Cusp Separation MM 2.2 cm DOPPLER AV Peak Velocity 111.3 cm/s AV Peak Gradient 5.0 mmHg MV Area PHT 3.4 cm??? Mitral E Point Velocity 57.2 cm/s Mitral A Point Velocity 62.6 cm/s Mitral E to A Ratio 0.9 MV Deceleration Time 222.3 ms FINDINGS Left Ventricle Left ventricular ejection fraction is estimated at 60-65 %. Left ventricular cavity size normal. Left ventricular wall thickness normal. Right Ventricle Normal right ventricular size. Unable to estimate the right ventricular systolic pressure. Right Atrium Normal right atrial size. Left Atrium Normal left atrial size. Mitral Valve Structurally normal mitral valve. No mitral stenosis, regurgitation or prolapse. Aortic Valve Trileaflet aortic valve. No aortic valve stenosis or regurgitation. Tricuspid Valve Structurally normal tricuspid valve. No tricuspid stenosis, regurgitation or prolapse. Pulmonic Valve Structurally normal pulmonic valve. Trace pulmonic regurgitation. Pericardium No pericardial effusion. Aorta Normal size aortic root and proximal ascending aorta. CONCLUSIONS Left ventricular ejection fraction 60-65% No mitral regurgitation No tricuspid regurgitation No pericardial effusion Previewed by: Dr. Mohsen Ward DO (Electronically Signed) Final Date: 05 May 2023 07:56
== END 2023-05-04 18:11 | DRG 775 ==
LOC: EC 16:31 → 3SCARD 18:30 → 5NMEDONC 05-03 12:07
PROVIDERS: ADMIT Internal Medicine; ATTEND Internal Medicine
DX: F10.239 Alcohol dependence with withdrawal, unspecified (principal); Z59.01 Sheltered homelessness; D69.59 Other secondary thrombocytopenia; D72.819 Decreased white blood cell count, unspecified; E66.9 Obesity, unspecified; Z68.30 Body mass index [BMI] 30.0-30.9, adult; E83.42 Hypomagnesemia; E87.6 Hypokalemia; F41.9 Anxiety disorder, unspecified; F43.10 Post-traumatic stress disorder, unspecified; F32.A Depression, unspecified; I10 Essential (primary) hypertension; K76.0 Fatty (change of) liver, not elsewhere classified; R45.851 Suicidal ideations; Z86.711 Personal history of pulmonary embolism; Z86.718 Personal history of other venous thrombosis and embolism; Z11.52 Encounter for screening for COVID-19; R74.01 Elevation of levels of liver transaminase levels
CPT/HCPCS: 36415; 71046; 76705; 80048; 80053; 80320; 81001; 82075; 83690; 83735; 83880; 84484; 85025; 85027; 85379; 85610; 85730; 87636; 93005; 93306; 96361; 96365; 96372; 96375; 96376; 99285

== ENCOUNTER 2023-05-04 16:48 | Inpatient (IN) | payer MEDICAID ==
[2023-05-04] MEDS: LORazepam 1 MG TAB PO PRN (00:15)
[2023-05-04] MEDS ORDERED: MAG HYDROX/AL HYDROX/SIMETH 30 ML CUP PO PRN (17:53)
[2023-05-04] MEDS ORDERED: HALOPERIDOL LACTATE 5 MG/ML 1 ML VIAL IM PRN (17:53)
[2023-05-04] MEDS ORDERED: LORazepam 2 MG/ML INJ IM PRN (17:53)
[2023-05-04] MEDS: LORazepam 1 MG TAB PO SCH (20:12)
[2023-05-04] MEDS: GABAPENTIN 300 MG CAP PO SCH (21:29)
[2023-05-04] MEDS: haloperidoL 5 MG TAB PO PRN (21:30)
[2023-05-05] MEDS: LORazepam 1 MG TAB PO PRN ×2 (00:15→13:36)
[2023-05-05] MEDS: GABAPENTIN 300 MG CAP PO SCH ×3 (08:10→21:45)
[2023-05-05] MEDS: LORazepam 1 MG TAB PO SCH ×2 (08:10→19:48)
[2023-05-05] MEDS: ESCITALOPRAM 10 MG TAB PO SCH (08:11)
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
[2023-05-05 15:02] LABS: LDL Cholesterol,Calculated 111.5 mg/dL (0.0-131.0)
[2023-05-05] MEDS: IBUPROFEN 600 MG TAB PO PRN (17:41)
[2023-05-05] MEDS: haloperidoL 5 MG TAB PO PRN (19:48)
[2023-05-06] MEDS: LORazepam 1 MG TAB PO PRN ×2 (02:19→12:13)
[2023-05-06] MEDS: ESCITALOPRAM 10 MG TAB PO SCH (08:15)
[2023-05-06] MEDS: GABAPENTIN 300 MG CAP PO SCH ×4 (08:16→20:45)
[2023-05-06] MEDS: LORazepam 1 MG TAB PO SCH ×2 (08:16→20:45)
[2023-05-06] MEDS: IBUPROFEN 600 MG TAB PO PRN (12:13)
--- NOTE | 2023-05-06 12:29 | P.PN ---
Subjective Progress Note Date: 05/06/23 Principal diagnosis: Adjustment disorder with mixed emotional features Major depressive disorder recurrent chronic with acute exacerbation Rule out pervasive persistent depressive disorder/dysthymia Alcohol use disorder unspecified Cannabis use disorder unspecified Relationship problems : 05/06/2023 Progress note: Subjective data: The patient was seen chart was reviewed and case discussed with the nursing staff The patient was sitting comfortably by herself in the patient lounge and appears to be in no acute distress She was cooperative during the interview She says that she is feeling better although she says that she has been somewhat anxious but the medications do seem to help She also admits that she tried to sleep but her sleep cycle is somewhat erratic She denies any suicidal or homicidal ideations She said that she feels overall positive about being here Patient also has multiple red blotches on her upper extremities which she claims are psoriatic patches and that it 10 to get more prominent whenever she has relapses and but tended to regress as she improves after her detox She said that she is maintaining a positive attitude overall Mental status examination: Reveals a young female who is somewhat overweight and currently appears in no acute physical distress Casually dressed and groomed as multiple red patches on her upper extremities Patient was friendly and cooperative She makes good eye contact Patient is alert and oriented to time place and person Speech was clear coherent and relevant Thought processes are goal-directed sequential and logical Patient admits feeling very depressed but denies any suicidal ideations or plans She admits feeling helpless and hopeless Thought processes are goal-directed sequential and logical Patient is alert and oriented to time place and person cognitively she appears to be intact Diagnostic impression: Adjustment disorder with mixed emotional features Major depressive disorder recurrent chronic with acute exacerbation Rule out pervasive persistent depressive disorder/dysthymia Alcohol use disorder unspecified Cannabis use disorder unspecified Relationship problems Plan: The patient is recommended for psychiatric hospitalization for further evaluation and treatment Patient will also participate in on the luz activities individual milieu group OT RT PT and pharmacotherapy Approximately the stay would be 7-12 days Patient initially will be started on lorazepam in tapering doses and will be monitored with the ciwa score for any withdrawal symptoms We will further taper down the lorazepam to 1 mg twice a day We'll increase the gabapentin to 300 mg 4 times a day We'll also add trazodone 100 mg at bedtime for insomnia For antidepressant treatment was started on Lexapro 10 mg daily to start within titrated to response Patient was recently treated for electrolyte imbalances at the time of admission where she was low on potassium and magnesium Patient has elevated transaminases secondary to alcohol use We'll continue follow-up Service is to be involved regarding discharge planning since patient has this time is currently homeless and although she is reluctant about the snf house or sober living that might be a a better solution to address both her substance use problems and housing issues [facility] Objective - Vital Signs Vital signs: Vital Signs Temp 97.9 F 05/06/23 06:41 Pulse 120 H 05/06/23 08:14 Resp 14 05/06/23 06:41 BP 129/77 05/06/23 08:14 Pulse Ox 94 L 05/04/23 18:47 FiO2 - Labs Labs: Abnormal Lab Results - Last 24 Hours (Table) 05/05/23 Range/Units 09:06 Cholesterol 222.00 H (0.00-200.00) mg/dL HDL Cholesterol 82.10 H (40.00-60.00) mg/dL
--- NOTE | 2023-05-06 18:47 | P.CONS ---
History of Present Illness - Reason for Consult Consult date: 05/06/23 - History of Present Illness 37 year old F with PMH of EtOH abuse presents to the ED for alcohol withdrawal and suicidal thoughts. In the ED, she underwent extensive evaluation. BP 161/103 HR 110, T 98.1F, RR 18, 98% on RA. CBC WBC 3.5, RBC 3.78, Plt 112. CMP Cl 108, bicarb 20, BUN 4, Ca 8. Troponins < 0.012 x 3. UA small LE. COVID, Flu, RSV negative. EtOH serum < 10. Admitted to the medical side for chest pain and EtOH withdrawal. Troponins negative, ACS ruled out. Cardiology recommended Echo which showed EF 60-65%. Liver US showed hepatic steatosis. Transferred to [facility] on 05/04. 05/06 Patient was seen and examined. She reports myalgias. Otherwise doing well. Complains of anxiety. She has no other complaints. Lipid panel T. Chol 222, HDL 82.1.TSH 7.5 FT4 1.72. General: non toxic, no distress, appears at stated age Derm: warm, dry Head: atraumatic, normocephalic, symmetric Eyes: EOMI, no lid lag, anicteric sclera Mouth: no lip lesion, mucus membranes moist Cardiovascular: Good distal perfusion in all 4 extremities. Lungs: Breathing comofortably, no accessory muscle use Ext: no gross muscle atrophy, no edema, no contractures Neuro: CN II-XI grossly intact, no focal neuro deficits Psych: Alert, oriented, appropriate affect Based on my assessment of this patient, this patient meets a moderate complexity level of care. Patient has an acute complaint of alcohol withdrawal and suicidal ideations w hich poses a threat to life or bodily function. Dyslipidemia: Low fat diet. Subclinical hypothyroidism: Repeat TSH in 6 weeks. Alcohol dependence with alcohol withdrawal: CIWA protocol with ativan PRN per scale. Leukopenia and thrombocytopenia: Likely related to EtOH abuse. Transaminitis: Obstructive. Likely related to EtOH abuse. No abdominal complaints. Liver and GB US as above. Suicidal ideation: Psyc management CODE STATUS: FULL CODE I have reviewed the following consultants intern notes: Psychiatry note. I have reviewed the results of the following tests: Lipid panel. TSH Past Medical History Past Medical History: Pulmonary Embolus (PE) History of Any Multi-Drug Resistant Organisms: None Reported Past Surgical History: Section Past Psychological History: Anxiety, Depression, PTSD Smoking Status: Never smoker Past Alcohol Use History: Abuse, Daily Past Drug Use History: Marijuana Medications and Allergies Home Medications Medication Instructions Recorded Confirmed Type No Known Home Medications 05/02/23 05/04/23 History Allergies Allergy/AdvReac Type Severity Reaction Status Date / Time cat dander Allergy Rash/Hives/Tongue Verified 05/02/23 19:05 Swelling Physical Exam Vitals: Vital Signs Temp Pulse Resp BP 05/06/23 08:14 120 H 129/77 05/06/23 06:41 97.9 F 81 14 131/77
[2023-05-06] MEDS: traZODone HCL 50 MG TAB PO SCH (20:45)
[2023-05-07] MEDS ORDERED: diphenhydrAMINE 50 MG CAP PO STA (03:12)
[2023-05-07] MEDS: GABAPENTIN 300 MG CAP PO SCH ×4 (08:41→21:13)
[2023-05-07] MEDS: ESCITALOPRAM 10 MG TAB PO SCH (08:41)
[2023-05-07] MEDS: LORazepam 1 MG TAB PO SCH ×2 (08:41→21:13)
--- NOTE | 2023-05-07 10:32 | P.PN ---
Subjective Progress Note Date: 05/07/23 Principal diagnosis: Adjustment disorder with mixed emotional features Major depressive disorder recurrent chronic with acute exacerbation Rule out pervasive persistent depressive disorder/dysthymia Alcohol use disorder unspecified Cannabis use disorder unspecified Relationship problems Patient Name: Ena Santana MMedical Record Number: [id number] Date of : 85 Patient Status: Inpatient Attending Provider: Richard Arce Date: 05/07/23 11:01 Initialization Date: 05/05/23 11:01 : 05/07/2023 Progress note: Subjective data: The patient was seen chart was reviewed and case discussed with the nursing staff Patient was seen in the area patient's lounge and appears to be in no acute distress She was dressed casually with some more worn out street clothes Patient also has significant excoriations on both her arms and states that they usually seem to exacerbate during her alcoholic bouts and seem to go into remission as she improves from the detox Emotionally she said that she is feeling better and that her anxiety is improved She feels that the medications have been helpful She remains somewhat reluctant but agreed that going to a rehab or a half a house would be her best option She denies any suicidal ideations or plans She admits that she does need to get better and have better control of the alcohol problem l Mental status examination: Reveals a young female who is somewhat overweight and currently appears in no acute physical distress Casually dressed and groomed as multiple red patches on her upper extremities Patient was friendly and cooperative She makes good eye contact Patient is alert and oriented to time place and person Speech was clear coherent and relevant Thought processes are goal-directed sequential and logical Patient admits feeling very depressed but denies any suicidal ideations or plans She admits feeling helpless and hopeless Thought processes are goal-directed sequential and logical Patient is alert and oriented to time place and person cognitively she appears to be intact Diagnostic impression: Adjustment disorder with mixed emotional features Major depressive disorder recurrent chronic with acute exacerbation Rule out pervasive persistent depressive disorder/dysthymia Alcohol use disorder unspecified Cannabis use disorder unspecified Relationship problems Plan: The patient is recommended for psychiatric hospitalization for further evaluation and treatment Patient will also participate in on the luz activities individual milieu group OT RT PT and pharmacotherapy Approximately the stay would be 7-12 days Patient initially will be started on lorazepam in tapering doses and will be monitored with the ciwa score for any withdrawal symptoms Patient has handled a decrease in lorazepam to 1 mg twice a day quite well We'll also increase the gabapentin to 300 mg 4 times a day We'll also add trazodone 100 mg at bedtime for insomnia patient reports no problems with insomnia at this time For antidepressant treatment was started on Lexapro 10 mg daily to start within titrated to response Patient was recently treated for electrolyte imbalances at the time of admission where she was low on potassium and magnesium Patient has elevated transaminases secondary to alcohol use We'll continue follow-up Service is to be involved regarding discharge planning since patient has this time is currently homeless and although she is reluctant about the care home house or sober living that might be a a better solution to address both her substance use problems and housing issues Kumar Goncalves M.D. Objective - Vital Signs Vital signs: Vital Signs Temp 98 F 05/07/23 07:08 Pulse 67 05/07/23 07:08 Resp 14 05/07/23 07:08 BP 119/59 05/07/23 07:08 Pulse Ox 94 L 05/04/23 18:47 FiO2
[2023-05-07] MEDS ORDERED: LORazepam 2 MG/ML INJ IM PRN (11:52)
[2023-05-07] MEDS: NAPROXEN 250 MG TAB PO PRN ×2 (15:22→21:14)
[2023-05-07] MEDS: LORATADINE 10 MG TAB PO SCH (15:22)
[2023-05-07] MEDS: traZODone HCL 50 MG TAB PO SCH (21:13)
[2023-05-08] MEDS: ESCITALOPRAM 10 MG TAB PO SCH (09:00)
[2023-05-08] MEDS: LORazepam 1 MG TAB PO SCH ×2 (09:00→22:06)
[2023-05-08] MEDS: NAPROXEN 250 MG TAB PO PRN ×2 (09:01→17:32)
[2023-05-08] MEDS: GABAPENTIN 300 MG CAP PO SCH ×4 (09:01→22:06)
[2023-05-08] MEDS: LORATADINE 10 MG TAB PO SCH (09:02)
[2023-05-08] MEDS: MAGNESIUM HYDROXIDE 2,400 MG/30 ML CUP PO PRN (10:38)
[2023-05-08] MEDS: ACETAMINOPHEN TAB 325 MG TAB PO PRN (17:34)
[2023-05-08] MEDS: hydrOXYzine HCL 25 MG TAB PO PRN (17:34)
[2023-05-08] MEDS: traZODone HCL 50 MG TAB PO SCH (22:06)
[2023-05-09] MEDS: hydrOXYzine HCL 25 MG TAB PO PRN ×3 (03:22→23:12)
[2023-05-09] MEDS: GABAPENTIN 300 MG CAP PO SCH ×4 (07:47→22:43)
[2023-05-09] MEDS: ESCITALOPRAM 10 MG TAB PO SCH (07:47)
[2023-05-09] MEDS: LORazepam 1 MG TAB PO SCH ×2 (07:47→22:43)
[2023-05-09] MEDS: ACETAMINOPHEN TAB 325 MG TAB PO PRN (07:47)
[2023-05-09] MEDS: LORATADINE 10 MG TAB PO SCH (07:47)
[2023-05-09] MEDS: NAPROXEN 250 MG TAB PO PRN (07:48)
[2023-05-09] MEDS: MAGNESIUM HYDROXIDE 2,400 MG/30 ML CUP PO PRN (12:10)
--- NOTE | 2023-05-09 18:33 | P.PN ---
Progress Note - Text Progress Note Date: 05/08/23 Interval history: Patient was seen wandering the hallways and was directable and agreeable to speak with telegraphic typewriter mechanic. She appears to be in happy mood, is smiling and laughing, reports good mood overall however she reports high anxiety and we discussed starting Hydroxyzine. At this time, patient denies any suicidal or homicidal ideation, intent or plan. Denies any auditory or visual hallucinations. Patient denies any side effects from the medications and has been compliant with meds. Mental status exam: General Appearance: Patient appears to be stated age, obese female, dressed in dirty sweatshirt, wearing eyeglasses Behavior: No agitated behavior. Patient is calm and directable Speech: Patient's speech is fluent and non-pressured. Mood/Affect: Mood is improving mildly, affect is congruent and constricted. Suicidality/Homicidality: Patient denies having any suicidal or homicidal ideation intent or plan. Perceptions: Patient denies any auditory or visual hallucinations. Though content/process: There is no evidence of any delusional thought content and thought process is linear and goal-directed. Memory and concentration: AOX3, grossly intact for the purposes of this session Judgment and insight: Improving mildly Assessment/Plan: Continue with current diagnosis. Patient continues to meet criteria for inpatient psychiatric admission for symptom stabilization and safety. Start Hydroxyzine 50 mg TID PRN for anxiety. Continue other medications as prescribed. Monitor for medication compliance and for any psychotropic medication side effects. Will continue to monitor ongoing response to treatment. Encouraged participation in milieu.
--- NOTE | 2023-05-09 18:50 | P.PN ---
Progress Note - Text Progress Note Date: 05/09/23 Interval history: Patient was seen asleep in her room, was napping in the afternoon, and was directable and agreeable to speak with ticket writer. She appears tired, is passively engaged, reports hydroxyzine is helping her anxiety. She returns to sleep. I saw her again later in the day and she did not recall our first meeting of the day. She states the Hydroxyzine is helpful but she would like help with her nighttime sleep since she awakens at around 3am and has difficulty returning to sleep, so we discussed increasing the bedtime Trazodone. She also inquires about starting Vivitrol to prevent relapsing on alcohol and we discussed this will be deferred at this time because of her elevated AST (119 H) and ALT (44 H) on admission. At this time, patient denies any suicidal or homicidal ideation, intent or plan. Denies any auditory or visual hallucinations. Patient denies any side effects from the medications and has been compliant with meds. Vitals reviewed and stable. No signs of alcohol withdrawal, tremors, or sweating. Mental status exam: General Appearance: Patient appears to be stated age, obese female, wearing eyeglasses Behavior: No agitated behavior. Patient is calm and directable Speech: Patient's speech is fluent and non-pressured. Mood/Affect: Mood is improving mildly, affect is congruent and constricted. Suicidality/Homicidality: Patient denies having any suicidal or homicidal ideation intent or plan. Perceptions: Patient denies any auditory or visual hallucinations. Though content/process: There is no evidence of any delusional thought content and thought process is linear and goal-directed. Memory and concentration: AOX3, grossly intact for the purposes of this session Judgment and insight: Improving mildly Assessment/Plan: Continue with current diagnosis. Patient continues to meet criteria for inpatient psychiatric admission for symptom stabilization and safety. Continue Hydroxyzine 50 mg TID PRN for anxiety. Increase Trazodone from 150 mg QHS to 200 mg QHS for sleep. Taper down Ativan 1 mg BID scheduled to 0.5 mg BID scheduled x 3 doses, then discontinue tomorrow evening. Continue Ativan PRN per CIWA for alcohol withdrawal. Will defer Vivitrol injection for alcohol use disorder due to elevated AST/ALT on admission. Repeat hepatic panel ordered for tomorrow AM to evaluate AST/ALT. Continue other medications as prescribed. Monitor for medication compliance and for any psychotropic medication side effects. Will continue to monitor ongoing response to treatment. Encouraged participation in milieu.
[2023-05-09] MEDS ORDERED: traZODone HCL 100 MG TAB PO SCH (21:00)
[2023-05-10] MEDS: ACETAMINOPHEN TAB 325 MG TAB PO PRN ×3 (01:43→21:21)
[2023-05-10] MEDS: LORATADINE 10 MG TAB PO SCH (08:44)
[2023-05-10] MEDS: GABAPENTIN 300 MG CAP PO SCH (08:44)
[2023-05-10] MEDS: ESCITALOPRAM 10 MG TAB PO SCH (08:44)
[2023-05-10] MEDS: LORazepam 1 MG TAB PO SCH ×2 (08:44→20:46)
[2023-05-10] MEDS: NAPROXEN 250 MG TAB PO PRN ×2 (08:49→21:20)
[2023-05-10 10:58] LABS: Albumin 4.3 g/dL (3.5-5.0); Bilirubin, Delta 0.4 mg/dL (0.0-0.2); Bilirubin,Unconjugated 0.4 mg/dL (0.0-1.1); Total Bilirubin 0.8 mg/dL (0.2-1.3); Total Protein 7.5 g/dL (6.3-8.2)
[2023-05-10] MEDS ORDERED: ESCITALOPRAM 10 MG TAB PO STA (11:27)
--- NOTE | 2023-05-10 11:38 | P.PN ---
Progress Note - Text Progress Note Date: 05/10/23 Interval history: Patient was seen in the hallway, and was directable and agreeable to speak with leader writer in the office. Patient states that she is feeling better today, and is having no withdraw symptoms from alcohol at this time. States that she is feeling happier, and not hopeless anymore. Patient claims she has always had anxiety, and racing thoughts at night time, and has trouble falling asleep at night. Discussed other options for medications, patient agreeable to try Remeron. Discussed rehab with patient, and she is agreeable to go to outpatient rehab upon discharge. Patient inquiring about Vivitrol for cravings, told patient that at this time, we cannot offer her that medication because of her LFT's, discussed acamprosate At this time, patient denies any suicidal or homicidal ideation, intent or plan. Denies any auditory or visual hallucinations. Patient denies any side effects from the medications and has been compliant with meds. Vitals reviewed and stable. No signs of alcohol withdrawal, tremors, or sweating. Mental status exam: General Appearance: Patient appears to be stated age, obese female, wearing eyeglasses dressed in street clothes Behavior: No agitated behavior. Patient is calm and directable Speech: Patient's speech is fluent and non-pressured. Mood/Affect: Mood is improving, affect is congruent and constricted. improving mildly Suicidality/Homicidality: Patient denies having any suicidal or homicidal ideation intent or plan. Perceptions: Patient denies any auditory or visual hallucinations. Though content/process: There is no evidence of any delusional thought content and thought process is linear and goal-directed. Memory and concentration: AOX3, grossly intact for the purposes of this session Judgment and insight: Improving mildly Diagnostic impression: Adjustment disorder with mixed emotional features Major depressive disorder recurrent chronic with acute exacerbation Rule out pervasive persistent depressive disorder/dysthymia Alcohol use disorder unspecified Cannabis use disorder unspecified Relationship problems Assessment/Plan: Continue with current diagnosis. Patient continues to meet criteria for inpatient psychiatric admission for symptom stabilization and safety. Hydroxyzine 50 mg TID PRN for anxiety. d/c Trazodone add Remeron 15mg qhs for sleep add acamprosate 333mg tid for alcohol cravings, D/C neurotin, Increase lexapro 20mg daily. D/C ativan after tonights dose. D/C CIWA Continue other medications as prescribed. Monitor for medication compliance and for any psychotropic medication side effects. SW on board for discharge planning. Will continue to monitor ongoing response to treatment. Encouraged participation in milieu Likely discharge Wednesday vs , depending on response to medication and psychiatric symptoms.. Patient agreeable to outpatient rehab and is refusing inpt rehab.
[2023-05-10] MEDS: ACAMPROSATE CALCIUM 333 MG TABLET.DR PO SCH ×3 (11:53→21:20)
[2023-05-10] MEDS: MIRTAZAPINE 15 MG TAB PO SCH (21:20)
[2023-05-10] MEDS: hydrOXYzine HCL 25 MG TAB PO PRN (22:24)
[2023-05-11] MEDS: LORATADINE 10 MG TAB PO SCH (08:34)
[2023-05-11] MEDS: ESCITALOPRAM 20 MG TAB PO SCH (08:34)
[2023-05-11] MEDS: ACAMPROSATE CALCIUM 333 MG TABLET.DR PO SCH ×3 (08:34→22:30)
--- NOTE | 2023-05-11 11:51 | P.PN ---
Progress Note - Text Progress Note Date: 05/11/23 Interval history: Patient was seen in the hallway, and was directable and agreeable to speak with contract writer in the office. Patient states that she is feeling great today, and is having no longer having withdraw symptoms from alcohol. States that she is feeling happier, and not hopeless anymore. Patient states that she slept well last night. Discussed rehab with patient, and she is agreeable to go to outpatient rehab upon discharge. Discharge to a friends home in [facility] tomorrow, if patient continues to improve Patient responding well to the acamprosate, will start the full dose today. patient denies any suicidal or homicidal ideation, intent or plan. Denies any auditory or visual hallucinations. Patient denies any side effects from the medications and has been compliant with meds. Vitals reviewed and stable. No signs of alcohol withdrawal, tremors, or sweating. Mental status exam: General Appearance: Patient appears to be stated age, obese female, wearing eyeglasses dressed in street clothes Behavior: No agitated behavior. Patient is calm and directable Speech: Patient's speech is fluent and non-pressured. Mood/Affect: Mood is improving, affect is congruent and constricted. improving Suicidality/Homicidality: Patient denies having any suicidal or homicidal ideat ion intent or plan. Perceptions: Patient denies any auditory or visual hallucinations. Though content/process: There is no evidence of any delusional thought content and thought process is linear and goal-directed. Memory and concentration: AOX3, grossly intact for the purposes of this session Judgment and insight: Improving Diagnostic impression: Adjustment disorder with mixed emotional features Major depressive disorder recurrent chronic with acute exacerbation Rule out pervasive persistent depressive disorder/dysthymia Alcohol use disorder unspecified Cannabis use disorder unspecified Assessment/Plan: Continue with current diagnosis. Patient continues to meet criteria for inpatient psychiatric admission for symptom stabilization and safety. Hydroxyzine 50 mg TID PRN for anxiety. Remeron 15mg qhs for sleep, increase acamprosate 666mg tid for alcohol cravings, lexapro 20mg daily for mood/anxiety. Continue other medications as prescribed. Monitor for medication compliance and for any psychotropic medication side effects. SW on board for discharge planning. Will continue to monitor ongoing response to treatment. Encouraged participation in milieu Likely discharge Wednesday to her friends house if patient continues to improve. Patient agreeable to outpatient rehab and is refusing inpt rehab.
[2023-05-11] MEDS: hydrOXYzine HCL 25 MG TAB PO PRN ×2 (15:03→22:30)
[2023-05-11] MEDS ORDERED: MELATONIN 5 MG TABLET PO SCH (21:00)
[2023-05-11] MEDS: MIRTAZAPINE 15 MG TAB PO SCH (22:31)
[2023-05-12] MEDS: ACETAMINOPHEN TAB 325 MG TAB PO PRN (06:35)
[2023-05-12] MEDS: hydrOXYzine HCL 25 MG TAB PO PRN (06:36)
[2023-05-12 07:18] VITALS: BP 141/89; PULSE 85; RESP 16; TEMP 97.8
[2023-05-12] MEDS: ACAMPROSATE CALCIUM 333 MG TABLET.DR PO SCH (07:49)
[2023-05-12] MEDS: LORATADINE 10 MG TAB PO SCH (07:49)
[2023-05-12] MEDS: ESCITALOPRAM 20 MG TAB PO SCH (07:49)
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
[2023-05-12] MEDS: NAPROXEN 250 MG TAB PO PRN (13:58)
[2023-05-13] MEDS: LORazepam 1 MG TAB PO PRN (15:33)
== END 2023-05-12 15:31 | disposition home or self-care (01) | DRG 755 ==
LOC: 3MHU 18:15
PROVIDERS: ADMIT Psychiatry & Neurology Psychiatry; ATTEND Psychiatry & Neurology Psychiatry
DX: F43.23 Adjustment disorder with mixed anxiety and depressed mood (principal); D69.6 Thrombocytopenia, unspecified; R45.851 Suicidal ideations; K76.0 Fatty (change of) liver, not elsewhere classified; F33.9 Major depressive disorder, recurrent, unspecified; F10.139 Alcohol abuse with withdrawal, unspecified; Z11.52 Encounter for screening for COVID-19; F12.10 Cannabis abuse, uncomplicated; F43.10 Post-traumatic stress disorder, unspecified; I10 Essential (primary) hypertension; E78.5 Hyperlipidemia, unspecified; D72.819 Decreased white blood cell count, unspecified; E03.8 Other specified hypothyroidism; L40.9 Psoriasis, unspecified; M79.10 Myalgia, unspecified site; R07.9 Chest pain, unspecified; R79.89 Other specified abnormal findings of blood chemistry; E66.3 Overweight; Z68.31 Body mass index [BMI] 31.0-31.9, adult; Z59.01 Sheltered homelessness; Z86.711 Personal history of pulmonary embolism; Z71.41 Alcohol abuse counseling and surveillance of alcoholic; Z71.51 Drug abuse counseling and surveillance of drug abuser
CPT/HCPCS: 80061; 80076; 83036; 84439; 84443; 87635

== ENCOUNTER 2023-12-29 21:00 | Observation (INO) | payer OTHER ==
[2023-12-29] MEDS ORDERED: ACETAMINOPHEN TAB 325 MG TAB ONE (21:26)
[2023-12-29] MEDS ORDERED: LORazepam 1 MG TAB ONE (22:59)
[2023-12-29] MEDS ORDERED: ONDANSETRON ODT 4 MG TAB ONE (23:05)
[2023-12-30] MEDS ORDERED: LORazepam 2 MG/ML INJ ONE ×8 (03:52→21:43)
[2023-12-30] MEDS ORDERED: MULTIVITAMINS, THERA 1 EACH TAB ONE (08:51)
[2023-12-30] MEDS ORDERED: PANTOPRAZOLE 40 MG TABLET PO ONE (08:52)
[2023-12-30] MEDS ORDERED: ENOXAPARIN 40 MG/0.4 ML SYRINGE SQ ONE (08:52)
[2023-12-30] MEDS ORDERED: ONDANSETRON 4 MG/2 ML VIAL ONE ×2 (11:41→19:10)
[2023-12-30] MEDS ORDERED: ACETAMINOPHEN TAB 325 MG TAB ONE ×2 (14:52→20:34)
[2023-12-31] MEDS ORDERED: LORazepam 1 MG TAB ONE (01:38)
[2023-12-31] MEDS ORDERED: SODIUM CHLORIDE 0.9% 1,000 ML BAG ONE (03:49)
[2023-12-31] MEDS ORDERED: ONDANSETRON 4 MG/2 ML VIAL ONE ×4 (04:13→20:16)
[2023-12-31] MEDS ORDERED: LORazepam 2 MG/ML INJ ONE ×7 (04:14→22:10)
[2023-12-31] MEDS ORDERED: MULTIVITAMINS, THERA 1 EACH TAB ONE (10:07)
[2023-12-31] MEDS ORDERED: PANTOPRAZOLE 40 MG TABLET PO ONE (10:08)
[2023-12-31] MEDS ORDERED: ENOXAPARIN 40 MG/0.4 ML SYRINGE SQ ONE (10:08)
[2023-12-31] MEDS ORDERED: chlordiazePOXIDE 25 MG CAP ONE ×3 (12:35→23:33)
[2023-12-31] MEDS ORDERED: ACETAMINOPHEN TAB 325 MG TAB ONE (20:15)
[2024-01-01] MEDS ORDERED: chlordiazePOXIDE 25 MG CAP ONE ×3 (06:52→20:09)
[2024-01-01] MEDS ORDERED: ACETAMINOPHEN TAB 325 MG TAB ONE ×2 (06:56→20:09)
[2024-01-01] MEDS ORDERED: ENOXAPARIN 40 MG/0.4 ML SYRINGE SQ ONE (07:55)
[2024-01-01] MEDS ORDERED: MULTIVITAMINS, THERA 1 EACH TAB ONE (07:55)
[2024-01-01] MEDS ORDERED: PANTOPRAZOLE 40 MG TABLET PO ONE (07:55)
[2024-01-01] MEDS ORDERED: LORazepam 2 MG/ML INJ ONE ×5 (07:56→20:20)
[2024-01-01] MEDS ORDERED: ONDANSETRON 4 MG/2 ML VIAL ONE ×2 (12:25→18:45)
[2024-01-01] MEDS ORDERED: SERTRALINE 50 MG TAB ONE (15:55)
[2024-01-01] MEDS ORDERED: LORazepam 2 MG/ML INJ IV PRN ×2 (16:24→16:25)
[2024-01-01] MEDS ORDERED: traZODone HCL 100 MG TAB ONE (20:09)
[2024-01-02] MEDS ORDERED: ONDANSETRON 4 MG/2 ML VIAL IVP PRN
[2024-01-02] MEDS ORDERED: NALOXONE 0.4 MG/ML 1 ML VIAL IVP PRN
[2024-01-02] MEDS ORDERED: LORazepam 2 MG/ML INJ IV PRN
[2024-01-02] MEDS ORDERED: LORazepam 2 MG/ML INJ ONE (02:01)
[2024-01-02] MEDS: SODIUM CHLORIDE 0.9% 1,000 ML IV SCH (03:41)
[2024-01-02] MEDS: PANTOPRAZOLE 40 MG TABLET PO SCH (06:50)
[2024-01-02] MEDS: SERTRALINE 50 MG TAB PO SCH (08:10)
[2024-01-02] MEDS: ENOXAPARIN 40 MG/0.4 ML SYRINGE SQ SCH (08:10)
[2024-01-02] MEDS: MULTIVITAMINS, THERA 1 EACH TAB PO SCH (08:10)
[2024-01-02] MEDS: LORazepam 2 MG/ML INJ IV PRN (08:10)
[2024-01-02] MEDS: chlordiazePOXIDE 25 MG CAP PO SCH (08:10)
[2024-01-02] MEDS: ACAMPROSATE CALCIUM 333 MG TABLET.DR PO SCH (08:10)
--- NOTE | 2024-01-02 11:51 | P.PN ---
Subjective Progress Note Date: 01/02/24 The patient is seen today January 02, 2024 in follow-up on the regular medical floor. She is currently sitting up in bed. Awake and alert in no acute distress. Denies any shortness of breath, cough or congestion. No seizure activity. Denies any significant delirium tremens. Does have some ongoing iss ues with anxiety. She received Ativan last at 8:00 this morning. Remains on multivitamins. Lovenox for DVT prophylaxis. She has normal staying at 100 mL/h. No new labs today. Objective - Vital Signs Vital signs: Vital Signs Temp 98.4 F 01/02/24 07:53 Pulse 87 01/02/24 07:53 Resp 16 01/02/24 07:53 BP 129/87 01/02/24 07:53 Pulse Ox 94 L 01/02/24 07:53 FiO2 Intake & Output 01/01/24 01/02/24 01/02/24 18:59 06:59 18:59 Weight 90.718 kg - Exam GENERAL EXAM: Alert,, comfortable in no apparent distress. HEAD: Normocephalic. EYES: Normal reaction of pupils, equal size. NOSE: Clear with pink turbinates. THROAT: No erythema or exudates. NECK: No masses, no JVD. CHEST: No chest wall deformity. LUNGS: Equal air entry with no crackles, wheeze, rhonchi or dullness. CVS: S1 and S2 normal with no audible murmur, regular rhythm. ABDOMEN: No hepatosplenomegaly, normal bowel sounds, no guarding or rigidity. SPINE: No scoliosis or deformity SKIN: No rashes CENTRAL NERVOUS SYSTEM: No focal deficits, tone is normal in all 4 extremities. EXTREMITIES: There is no peripheral edema. No clubbing, no cyanosis. Peripheral pulses are intact. Assessment and Plan Assessment: Assessment: Acute alcohol withdrawal syndrome History of alcoholism Obesity Anxiety Plan: The patient was seen and evaluated Medications reviewed Stable and on room air Cleared for discharge from pulmonary standpoint Educated regarding importance of alcohol cessation I have personally seen and examined the patient, performed the documentation and the assessment and plan as written. Number of minutes spent on the visit: 10.
--- NOTE | 2024-01-02 13:02 | P.CN ---
Psychiatric Consult - . Consult date: 01/02/24 Consult:: 01/02/24 12:57 This is a psychiatric consultation on this 38-year-old female who is currently hospitalized for alcohol use disorder Patient had also verbalized suicidal ideations When interviewed patient reports that she has lost the will to live and that has been going on for several years Patient states that she has had been through 4 different detox programs in the last 2 years and the last time being about a year ago when she was hospitalized in the beginning of this year at the third floor Patient currently denies that she has any suicidal plans or ideations but states that she has passive thoughts of wanting to be Patient states that she in the past had made attempts where she wanted to drink herself until she Patient currently denies any such intention and states that she wants help She states that she has an appointment at the [place] tomorrow and that she already has a ride to go there and be hospitalized for detox She however feels that she should also have intensive simultaneous psychiatric treatment in addition to the alcohol use Past history personal social history as described above Patient also currently reports that she is homeless She states that she has family but that she is not in touch with them She said that she had 1 child which she adopted away She denies any other substance use Mental status examination: Mental Status Exam Psychomotor Activity: _Normal activity Appearance: _Good grooming and hygiene Speech: _Normal rate and volume Thought Process: _Goal directed Thought Content: _Appropriate content Orientation and Cognition: _Oriented to time and place Mood: _Appropriate mood Affect: _Appropriate affect Suicidal Ideation : _Denies suicidal ideation in the hospital Mental Status Exam Psychomotor Activity: _Normal activity Appearance: _Good grooming and hygiene Speech: _Normal rate and volume Thought Process: _Goal directed Thought Content: _Appropriate content Orientation and Cognition: _Oriented to time and place Mood: _Appropriate mood Affect: _Appropriate affect Suicidal Ideation : _Denies suicidal ideation or plans but states that she has passive thoughts of not being around Suicide risk assessment: 1 emotional and physical pain: low 2 withdrawal/inability to talk about feelings/lack of participation: low 3 current stress/losses/difficult life situation: Moderate 4 hopelessness/inability to think of the future that could be bright: Mild to mo derate 5 history of self harm, especially in the hospital/healthcare facilities: low 6 access to firearms: denied 7 current depressive hypomanic or manic episodes: none 8 current thoughts of suicide, intent or plan: low estimated suicide risk : low "This dictation was prepared using [employer] voice recognition software. As a result, errors may occur. When identified, these errors have been corrected. While every attempt is made to correct errors during dictation, errors may still exist." I have spent more than 35 minutes with patient doing preparation for encounter, history, physical exam, interpretation of results, reviewing images myself, and coordination of care. Please see assessment and plan above regarding details. 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 Major depressive disorder mild to moderate Alcohol use disorder Plan: The patient at this time does not meet the criteria for inpatient psychiatric hospitalization however she does appear to be in need of intensive substance use program along with treatment for her alcohol use disorder and depression Patient is recommended to continue on the Zoloft as prescribed and adjustments to be made as needed by the psychiatrist who will be following her at the residential facility Thank you very much for the kind referral of the patient referred to contact me for any further questions Kuamr Goncalves MD
--- NOTE | 2024-01-02 15:03 | P.PN ---
Subjective Progress Note Date: 01/02/24 Principal diagnosis: etoh withdrawal patient currently doing well, denies having shortness of breath pain. Slightly anxious and having some headaches. Otherwise no complaints. Objective - Vital Signs Vital signs: Vital Signs Temp 98.4 F 01/02/24 07:53 Pulse 87 01/02/24 07:53 Resp 16 01/02/24 07:53 BP 129/87 01/02/24 07:53 Pulse Ox 94 L 01/02/24 07:53 FiO2 Intake & Output 01/01/24 01/02/24 01/02/24 18:59 06:59 18:59 Weight 90.718 kg - Exam Constitutional: No acute distress, conversant, pleasant Eyes:Anicteric sclerae, moist conjunctiva, no lid-lag, PERRLA, ENMT: Oropharynx clear, no erythema, exudates Neck: Supple, FROM, no masses, or JVD, No carotid bruits, No thyromegaly Lungs: Clear to auscultation, Clear to percussion, Normal respiratory effort, no accessory muscle use Cardiovascular: Heart regular in rate and rhythm, No murmurs, gallops, or rubs, No peripheral edema Abdominal: Soft, Nontender, no guarding, rebound or rigidity, Normoactive bowel sounds, No hepatomegaly, No splenomegaly, No palpable mass Skin: Normal temperature, tone, texture, turgor, no induration, No subcutaneous nodules, No rash, lesions, No ulcers Extremities: No digital cyanosis, No clubbing, Pedal pulses intact and symmetrical, Radial pulses intact and symmetrical, No calf tenderness Psychiatric: Alert and oriented to person, place and time, appropriate affect, intact judgement Neuro: Muscles Strength 5/5 in all 4 extremities, Sensation to light touch grossly present throughout, Cranial nerves II-XII grossly intact, no focal sensory deficits Assessment and Plan Plan: Alcohol abuse and withdrawal Currently resolved, on CIWA Started on Campral Discharge to [facility] for rehabilitation. Patient made arrangement for Wednesday. depression/anxiety with suicial ideation Seen by psychiatry Continue callyoft
[2024-01-02 15:30] VITALS: RESP 17
[2024-01-02] MEDS: LORazepam 1 MG TAB PO PRN (18:29)
[2024-01-03] MEDS: ACETAMINOPHEN TAB 325 MG TAB PO PRN (00:45)
[2024-01-03 02:23] VITALS: BP 110/67; PULSE 76; TEMP 98.4
--- NOTE | 2024-01-03 08:15 | P.DS ---
Providers Date of admission: 12/29/23 21:00 Expected date of discharge: 01/03/24 Attending physician: Jesus Manuel Ziegler MD Consults: 01/01/24 17:18 Consult Physician Routine Consulting Provider: Richard Arce Consult Reason/Comments: depression Do you want consulting provider notified?: Already Contacted Primary care physician: Stated None Hospital Course: Discharge diagnoses: Acute alcohol withdrawal syndrome History of alcoholism Obesity Anxiety 38 years old female with history of alcohol abuse presented because of alcohol intoxication as well as suicidal ideations. She was started on alcohol withdrawal protocol with Ativan. She did have signs of alcohol withdrawal and was given Ativan as needed. She was seen by psychiatry as well for suicidal ideation. Was not a candidate for inpatient psych admit. She was initiated on Zoloft, trazodone and acamprosate. She was encouraged to follow-up with [facility] for alcohol abstinence, she did make a phone call and will be discharged today to [facility] rehabilitation [facility]. I have personally seen and examined the patient, performed the documentation and the assessment and plan as written. Plan - Discharge Summary New Discharge Prescriptions: New Acamprosate Calcium [Campral] 333 mg PO TID 30 Days #90 tab Sertraline [Zoloft] 50 mg PO DAILY 30 Days #30 tab traZODone HCL [Desyrel] 100 mg PO HS 30 Days #30 tab Continue Acamprosate Calcium [Campral] 666 mg PO TID 30 Days #90 tab Loratadine [Claritin] 10 mg PO DAILY 30 Days #30 tab hydrOXYzine HCL [Atarax] 50 mg PO DAILY PRN 30 Days #60 tab PRN Reason: Anxiety Melatonin 5 mg PO HS 30 Days #30 tab Naproxen [Naprosyn] 500 mg PO TID PRN 10 Days #30 tab PRN Reason: Breakthrough Pain Discontinued Escitalopram [Lexapro] 20 mg PO DAILY 30 Days #30 tab Mirtazapine [Remeron] 15 mg PO HS 30 Days #30 tab Discharge Medication List Acamprosate Calcium [Campral] 666 mg PO TID 30 Days #90 tab 05/12/23 [Rx] Loratadine [Claritin] 10 mg PO DAILY 30 Days #30 tab 05/12/23 [Rx] Melatonin 5 mg PO HS 30 Days #30 tab 05/12/23 [Rx] Naproxen [Naprosyn] 500 mg PO TID PRN 10 Days #30 tab 05/12/23 [Rx] hydrOXYzine HCL [Atarax] 50 mg PO DAILY PRN 30 Days #60 tab 05/12/23 [Rx] Acamprosate Calcium [Campral] 333 mg PO TID 30 Days #90 tab 01/03/24 [Rx] Sertraline [Zoloft] 50 mg PO DAILY 30 Days #30 tab 01/03/24 [Rx] traZODone HCL [Desyrel] 100 mg PO HS 30 Days #30 tab 01/03/24 [Rx]
[2024-01-03] MEDS: traZODone HCL 100 MG TAB PO SCH (08:33)
== END 2024-01-03 07:46 | disposition home or self-care (01) ==
LOC: 4SSUR 21:00 → UNDODISOB 12-30 00:49
PROVIDERS: ADMIT Internal Medicine; ATTEND Internal Medicine
DX: F10.229 Alcohol dependence with intoxication, unspecified (principal); F10.239 Alcohol dependence with withdrawal, unspecified; F32.1 Major depressive disorder, single episode, moderate; F43.25 Adjustment disorder with mixed disturbance of emotions and conduct; L40.9 Psoriasis, unspecified; F41.9 Anxiety disorder, unspecified; Y90.8 Blood alcohol level of 240 mg/100 ml or more; E66.9 Obesity, unspecified; Z59.00 Homelessness unspecified; Z68.31 Body mass index [BMI] 31.0-31.9, adult; Z79.01 Long term (current) use of anticoagulants; Z79.899 Other long term (current) drug therapy; Z86.711 Personal history of pulmonary embolism
CPT/HCPCS: 93005; 96361; 96372; 96374; 96375; 96376; 99285